=== PATIENT | female | born 1965 | race Caucasian/White ===

== ENCOUNTER 2021-04-15 04:51 | Day surgery (SDC) | payer BC ==
[2021-04-11 14:31] VITALS: BMI 24.0
[2021-04-15 11:06] LABS: HEMATOCRIT 38.9 % (32.4-45.2); HEMOGLOBIN 12.9 GM/dL (10.7-15.3); MCH 29.4 pg (25.7-33.7); MCHC 33.1 g/dl (32.0-36.0); MEAN PLT VOLUME 7.4 fl (7.5-11.1); PLATELET COUNT 248 10^3/uL (134-434); RBC 4.37 M/mm3 (3.60-5.2); RDW 14.3 % (11.6-15.6)
[2021-04-15 11:13] LABS: INR 1.04 (0.83-1.09)
[2021-04-15 11:16] LABS: ACTIVATED PTT 31.2 SECONDS (25.2-36.5)
[2021-04-15 11:29] LABS: ALBUMIN 3.7 g/dl (3.4-5.0); BLOOD UREA NITROGEN 14.7 mg/dL (7-18); CALCIUM 9.1 mg/dL (8.5-10.1)
[2021-04-15 11:33] LABS: CREATININE 0.8 mg/dL (0.55-1.3)
[2021-04-15 11:34] LABS: BILIRUBIN,TOTAL 0.4 mg/dL (0.2-1); TOT PROT 7.3 g/dl (6.4-8.2)
[2021-04-15] MEDS ORDERED: MIDAZOLAM HCL 2 MG/2 ML SINGLE DOSE VIAL ONE (13:17)
[2021-04-15] MEDS ORDERED: PROPOFOL 20 ML ONE ×2 (13:51)
[2021-04-15] MEDS ORDERED: ONDANSETRON 4 MG/2 ML VIAL IVPUSH PRN (15:02)
[2021-04-15] MEDS ORDERED: PROMETHAZINE HCL 25 MG/1 ML VIAL IVPUSH PRN (15:02)
[2021-04-15] MEDS ORDERED: oxyCODONE HCL 5 MG TABLET PO PRN (15:02)
[2021-04-15 16:02] VITALS: TEMP 98.2
[2021-04-15 18:44] VITALS: BP 122/70; PULSE 68
== END 2021-04-15 17:29 | disposition home or self-care (01) ==
LOC: JASU-SURG 04:51
PROVIDERS: ATTEND Obstetrics & Gynecology
PROC: 0UDB8ZZ Extraction of Endometrium, Via Natural or Artificial Opening Endoscopic (ICD-10-PCS; 2021-04-15)
PROC: 0UB98ZZ Excision of Uterus, Via Natural or Artificial Opening Endoscopic (ICD-10-PCS; principal; 2021-04-15 12:00)
DX: N95.0 Postmenopausal bleeding (principal); D25.0 Submucous leiomyoma of uterus; N93.0 Postcoital and contact bleeding
CPT/HCPCS: 36415; 80053; 85027; 85610; 85730; 86850; 86900; 86901; 88305-TC; 88307-TC; 94760